=== PATIENT | female | born 1975 | race Caucasian/White ===

== ENCOUNTER 2019-02-25 08:26 | Outpatient (CLI) | payer MEDICAID | END 2019-02-25 08:57 | disposition home or self-care (01) | LOC: D.MAMMO 08:26 | PROVIDERS: ATTEND Emergency Medicine | DX: Z12.31 Encounter for screening mammogram for malignant neoplasm of breast (principal) ==

== ENCOUNTER 2019-03-03 08:00 | Outpatient (CLI) | payer MEDICAID | END 2019-03-03 23:59 | disposition home or self-care (01) | LOC: D.MAMMO 08:00 | PROVIDERS: ATTEND Emergency Medicine | DX: R92.8 Other abnormal and inconclusive findings on diagnostic imaging of breast (principal) ==